=== PATIENT | female | born 1950 | race Two or more races ===

== ENCOUNTER 2022-08-21 14:43 | Inpatient (IN) | payer OTHER, MEDICAID ==
[~2022-08-21] VITALS: Ht 144.8 cm; Wt 76.8 kg
[2022-08-21] MEDS ORDERED: SODIUM CHLORIDE 0.9% 1,000 ML IV ONE (15:45)
[2022-08-21 16:27] LABS: Basophils # (auto) 0.1 10 ^3/uL (0-0.2); Basophils % (auto) 0.5 % (0.0-2.0); Eosinophils # (auto) 0.1 10 ^3/uL (0-0.8); Eosinophils % (auto) 0.9 % (0.0-7.0); Hemoglobin 12.3 g/dL (12.2-16.2); Lymphocytes # (auto) 2.6 10 ^3/uL (0.4-5.4); Lymphocytes % (auto) 21.2 % (10.0-50.0); Mean Corpuscular Hemoglobin 28.3 pg (28.0-32.0); Mean Corpuscular Hgb Conc. 32.4 g/dL (32.0-36.0); Mean Corpuscular Volume 87.2 fL (80.0-100.0); Monocytes # (auto) 1.2 10 ^3/uL (0-1.3); Monocytes % (auto) 9.8 % (0.0-12.0); Neutrophils # (auto) 8.2 10 ^3/uL (1.6-8.6); Neutrophils % (auto) 67.6 % (37.0-80.0); Nucleated Red Blood Cells % 0.1 %; Red Blood Cells 4.35 10^6/uL (4.0-5.20); Red Cell Distribution Width 14.6 % (11.8-14.3); White Blood Cell 12.1 10^3/uL (4.4-10.8)
[2022-08-21 16:44] LABS: Albumin 2.9 g/dL (3.4-5.0); BUN/Creatinine Ratio 11.8; Calcium 8.5 mg/dL (8.5-10.1); Potassium 3.1 mmol/L (3.5-5.1)
[2022-08-21 16:47] LABS: Bilirubin, Total 0.8 mg/dL (0.2-1.0); Total Protein 6.2 g/dL (6.4-8.2)
[2022-08-21] MEDS ORDERED: POTASSIUM EFFERVESENT TAB 25 MEQ PO ONE (18:15)
[2022-08-21] MEDS ORDERED: cefTRIAXone 1GM/50ML D5W 50 ML IV ONE (18:15)
[2022-08-21 18:39] LABS: Urine Bacteria NONE SEEN /hpf (None Seen); Urine Blood Negative /uL (Negative); Urine Specific Gravity 1.009 (1.001-1.035); Urine WBC 4 /hpf (0 - 5)
[2022-08-21] MEDS ORDERED: LOPERAMIDE HCL 2 MG CAP/TAB PO PRN (19:00)
[2022-08-21] MEDS ORDERED: ONDANSETRON HCL 4 MG/2 ML VIAL IV PRN (19:00)
[2022-08-21] MEDS ORDERED: MORPHINE SULFATE INJ 2 MG/ml SYRG IV PRN (19:00)
[2022-08-21] MEDS ORDERED: DEXTROSE (50%) 50ML SYRG IV PRN (19:00)
[2022-08-21] MEDS: SODIUM CHLORIDE 0.9% 1,000 ML IV SCH ×4 (19:00→23:08)
[2022-08-21] MEDS: ACETAMINOPHEN 325 MG TAB PO PRN (23:42)
[2022-08-21] MEDS: ACCU-CHEK COMFORT CURVE STRIP VI SCH (23:54)
[2022-08-21] MEDS: InsuLIN REG 1unit/0.01ml Soln (100units/ml) SC SCH (23:56)
[2022-08-22] MEDS: SODIUM CHLORIDE 0.9% 1,000 ML IV SCH ×2 (02:30→17:12)
[2022-08-22] MEDS: ACETAMINOPHEN 325 MG TAB PO PRN (03:10)
[2022-08-22 06:00] LABS: Albumin 2.4 g/dL (3.4-5.0); Calcium 7.2 mg/dL (8.5-10.1); Potassium 3.5 mmol/L (3.5-5.1)
[2022-08-22 06:12] LABS: Bilirubin, Total 0.7 mg/dL (0.2-1.0)
[2022-08-22 06:29] LABS: Basophils # (auto) 0.1 10 ^3/uL (0-0.2); Basophils % (auto) 0.7 % (0.0-2.0); Eosinophils # (auto) 0.1 10 ^3/uL (0-0.8); Eosinophils % (auto) 1.2 % (0.0-7.0); Hematocrit 31.8 % (36.0-46.0); Hemoglobin 10.7 g/dL (12.2-16.2); Lymphocytes # (auto) 2.1 10 ^3/uL (0.4-5.4); Lymphocytes % (auto) 22.3 % (10.0-50.0); Mean Corpuscular Hemoglobin 29.1 pg (28.0-32.0); Mean Corpuscular Hgb Conc. 33.7 g/dL (32.0-36.0); Mean Corpuscular Volume 86.3 fL (80.0-100.0); Monocytes # (auto) 1.3 10 ^3/uL (0-1.3); Monocytes % (auto) 13.9 % (0.0-12.0); Neutrophils # (auto) 5.9 10 ^3/uL (1.6-8.6); Neutrophils % (auto) 61.9 % (37.0-80.0); Nucleated Red Blood Cells % 0.1 %; Red Blood Cells 3.69 10^6/uL (4.0-5.20); Red Cell Distribution Width 14.3 % (11.8-14.3); White Blood Cell 9.4 10^3/uL (4.4-10.8)
[2022-08-22] MEDS: InsuLIN REG 1unit/0.01ml Soln (100units/ml) SC SCH ×4 (06:47→23:46)
[2022-08-22] MEDS: ACCU-CHEK COMFORT CURVE STRIP VI SCH ×4 (06:47→23:46)
[2022-08-22 08:42] LABS: Creatinine, Urine 36 mg/dL (30.0-125.0); Sodium Urine 24 mmol/L (40-220)
[2022-08-22] MEDS: PANTOPRAZOLE 40 MG/10 ML VIAL INJ IV SCH (10:08)
[2022-08-22] MEDS: ENOXAPARIN SOD 40 MG/0.4 ML SYRINGE SC SCH (10:08)
[2022-08-22 16:11] VITALS: BP 102/43
[2022-08-22 17:00] VITALS: BP 102/43
[2022-08-22 22:00] VITALS: BP 122/49
[2022-08-23 05:00] VITALS: BP 132/63
[2022-08-23] MEDS: InsuLIN REG 1unit/0.01ml Soln (100units/ml) SC SCH (05:41)
[2022-08-23] MEDS: ACCU-CHEK COMFORT CURVE STRIP VI SCH (05:41)
[2022-08-23 09:00] VITALS: BP 109/41
[2022-08-23] MEDS: PANTOPRAZOLE 40 MG/10 ML VIAL INJ IV SCH (09:55)
[2022-08-23] MEDS: ENOXAPARIN SOD 40 MG/0.4 ML SYRINGE SC SCH (09:55)
[2022-08-23] MEDS: SODIUM CHLORIDE 0.9% 1,000 ML IV SCH (11:44)
[2022-08-23] MEDS ORDERED: PANT40TA2 PO (12:16)
[2022-08-23 13:00] VITALS: BP 107/47
== END 2022-08-23 13:35 | disposition home or self-care (01) | DRG 392 ==
LOC: ER 14:50 → EDBD 14:50 → OVERFLOW 18:53 → TELE-WESTW 08-22 16:10
PROVIDERS: ADMIT Nurse Practitioner Family; ATTEND Internal Medicine
DX: K29.70 Gastritis, unspecified, without bleeding (principal); E44.1 Mild protein-calorie malnutrition; E87.1 Hypo-osmolality and hyponatremia; N17.9 Acute kidney failure, unspecified; I95.9 Hypotension, unspecified; E11.65 Type 2 diabetes mellitus with hyperglycemia; E87.6 Hypokalemia; Z20.822 Contact with and (suspected) exposure to COVID-19; R06.03 Acute respiratory distress; R19.7 Diarrhea, unspecified; E86.0 Dehydration; D72.829 Elevated white blood cell count, unspecified; I10 Essential (primary) hypertension; J45.909 Unspecified asthma, uncomplicated; Z90.49 Acquired absence of other specified parts of digestive tract; Z68.36 Body mass index [BMI] 36.0-36.9, adult; Z90.710 Acquired absence of both cervix and uterus
CPT/HCPCS: 36415; 71045; 74176; 80053; 81001; 82570; 82962; 83036; 83605; 84300; 84484; 85025; 87045; 87081; 87086; 87426; 93005; 96361; 96365; C9113; G0378; J0696